=== PATIENT | female | born 1985 | race Caucasian/White ===

== ENCOUNTER 2020-01-14 09:23 | Outpatient (RCR) | payer OTHER, SELFPAY ==
[2020-01-14 10:48] VITALS: BP 108/72; PULSE 80
== END 2020-03-28 07:48 | disposition home or self-care (01) ==
LOC: ANHOBOP 09:23
PROVIDERS: Visit Provider Obstetrics & Gynecology
DX: O36.8130 Decreased fetal movements, third trimester, not applicable or unspecified (principal); Z3A.28 28 weeks gestation of pregnancy
CPT/HCPCS: 59025

== ENCOUNTER 2020-03-28 00:01 | Inpatient (IN) | payer OTHER, SELFPAY ==
[2020-03-28] VITALS (163 sets, daily range): BP systolic 69–123; BP diastolic 39–84; PULSE 36–109; RESP 18; TEMP 36.1–37.2; O2SAT 95–100; BMI 32.4
[2020-03-28 01:11] LABS: Basophils Percent Auto 0.4 % (0.2-1.2); Eosinophils Absolute Auto 0.1 K/mm3 (0-0.3); Hematocrit 30.4 % (37.0-47.0); Hemoglobin 10.5 g/dL (12.0-15.0); Immature Granulocyte Absolute 0.07 K/mm3 (0.00-0.031); Immature Granulocyte Percent A 0.7 % (0-0.5); Lymphocytes Absolute Auto 1.85 K/mm3 (0.9-3.2); Lymphocytes Percent Auto 18.3 % (18.3-44.2); Mean Corpuscular HGB Conc 34.5 g/dl (32-36); Mean Corpuscular Hemoglobin 31.6 pg (26-34); Mean Corpuscular Volume 91.6 fl (80-100); Mean Platelet Volume 10.7 fl (7.4-10.4); Monocytes Absolute Auto 0.8 K/mm3 (0.1-0.6); Monocytes Percent Auto 7.9 % (2.6-8.5); Neutrophils Absolute Auto 7.2 K/mm3 (1.3-6.7); Neutrophils Percent Auto 71.7 % (45.5-73.1); Platelet Count Result 238 k/mm3 (150-375); Red Blood Count 3.32 M/mm3 (4.2-5.4); Red Cell Distribution Width 12.1 % (11.5-14.5); White Blood Count 10.1 K/mm3 (4.5-10.0)
[2020-03-28] MEDS: LACTATED RINGERS 1,000 ML 125 ML IV CONT ×3 (01:15→07:51)
[2020-03-28] MEDS: OXYTOCIN 30 UNITS/NS 500 ML 30 UNITS/500 ML BAG IV CONT (01:15)
--- NOTE | 2020-03-28 01:24 | LDADM ---
This patient, Svetlana Mooney, was admitted to Labor/Delivery/Recovery 106 on 03/28/20 at 00:01. Plans for labor, pain management and were discussed with patient. Patient/family oriented to hospital policies and general routines including ID bracelet, bed and alarms, visiting hours, pain management, procedures, bathroom and other care routines, personal items, smoking policy, room service/diet and guest tray routines, security routines, and visiting hours. Patient/Family are encouraged to report perceived risks to care and to ask questions if they do not understand what they are told or what they should do. See OBIX for further documentation.
--- NOTE | 2020-03-28 04:01 | P.PNAN_ITS ---
Anes - Eval Pre Procedure Procedure: Labor epidural Date/Time: 03/28/20 04:01 Surgeon: Mitchell Blackburn M.D. Preop Diagnosis: pain during labor Pre Op Diagnosis: Induction Patient Data Age: 34 Gender: F Height: 1.7 m Weight: 94 kg Last Vital Signs Temp 36.4 C 03/28/20 01:46 Pulse 57 L 03/28/20 04:00 BP 114/76 03/28/20 04:00 Allergies Allergy/AdvReac Type Severity Reaction Status Date / Time No Known Allergies Allergy Unknown Unverified 09/13/11 13:50 Home Medications Medication Instructions Recorded Confirmed Type [id number]-kezjiaz fumarate-FA 1 tablet PO DAILY 03/08/20 03/08/20 History [] Laboratory Tests 03/28/20 03/28/20 03/28/20 01:01 01:01 01:01 WBC 10.1 K/mm3 H K/mm3 (4.5-10.0) RBC 3.32 M/mm3 L M/mm3 (4.2-5.4) Hgb 10.5 g/dL L g/dL (12.0-15.0) Hct 30.4 % L % (37.0-47.0) MCV 91.6 fl fl (80-100) MCH 31.6 pg pg (26-34) MCHC 34.5 g/dl g/dl (32-36) RDW 12.1 % % (11.5-14.5) Plt Count 238 k/mm3 k/mm3 (150-375) MPV 10.7 fl H fl (7.4-10.4) Immature Gran % (Auto) 0.7 % H % (0-0.5) Neut % (Auto) 71.7 % % (45.5-73.1) Lymph % (Auto) 18.3 % % (18.3-44.2) [place] % (Auto) 7.9 % % (2.6-8.5) Eos % (Auto) 1.0 % % (0-4.4) Baso % (Auto) 0.4 % % (0.2-1.2) Lymph # (Auto) 1.85 K/mm3 K/mm3 (0.9-3.2) [place] # (Auto) 0.8 K/mm3 H K/mm3 (0.1-0.6) Eos # (Auto) 0.1 K/mm3 K/mm3 (0-0.3) Baso # (Auto) 0.0 K/mm3 K/mm3 (0.0-0.1) Abs Immat Gran (auto) 0.07 K/mm3 H K/mm3 (0.00-0.031) Absolute Neuts (auto) 7.2 K/mm3 H K/mm3 (1.3-6.7) Absolute Nucleated RBC 0.0 K/mm3 K/mm3 (0.0-0.012) Nucleated RBC % 0.0 % % (0.0-0.2) RPR Pending Blood Type O Positive Antibody Screen Negative Patient hx anesthesia problems: none Family hx anesthesia problems: none [facility] Family History Family History (Updated 03/08/20 @ 13:18 by Sera Fernando RN) Father Diabetes mellitus Social History Social History Smoking status: Former smoker Tobacco type: cigarettes Smoking end date: 07/31/19 Substance use: current Gender identity (if verbalized by the patient): Female Spiritual care concerns: No Exam Day of Procedure 03/28/20 04:01
--- NOTE | 2020-03-28 07:20 | WPDOBADMIT ---
Obstetrics - Admit Note Admission Note: record reviewed. No pertinent additions to the history and/or any subsequent changes in the physical findings that are not consistent with the expected course of the were found. Additions to the history and/or subsequent changes in the physical findings follow. None.
--- NOTE | 2020-03-28 07:21 | WPDHPUPDATE1 ---
History and Physical Update Update Date/Time: 03/28/20 07:21 History and Physical has been reviewed, including an updated exam of the patient. There are NO changes in the patient's condition. Risks, benefits, and alternatives have been discussed and questions answered. Patient agrees to proceed with procedure.
[2020-03-28 11:55] LABS: Rapid Plasma Reagin Non-Reactive (NonReactive)
--- NOTE | 2020-03-28 13:37 | PM.OBPRVD ---
OB - Delivery Note Procedure Route of delivery: Laceration Description: Perineal - 2nd Degree Specimen: No Estimated blood loss (mL): 200 Anesthesia type: Epidural Disposition: floor Narrative: Patient prepped draped usual manner for this procedure. Maternal expulsive efforts readily delivered vertex which was then deliver the rest of the baby as well. Nuchal cord was noted and delivered through. Cord was clamped and cut placenta delivered spontaneously uterus was well contracted. Second-degree laceration was noted and approximated in 2 0 chromic to approximate the vaginal tissue. Deep tissue was also approximated in a subcuticular layer to approximate the skin. At this point seizure was considered terminated with good condition of mother and baby. Baby Weeks of gestation at delivery: 39 Infant gender: Male Weight (pounds): 8 Weight (ounces): 1 score one minute: 8 score five minutes: 9
[2020-03-28] MEDS: OXYTOCIN 30 UNITS/NS 500 ML 30 UNITS/500 ML BAG 125 UNITS IV CONT (13:49)
--- NOTE | 2020-03-28 16:22 | PC.NURSE ---
Patient transferred to post room #284 via wheelchair. Support person present. Oriented to unit, room, information board, rooming in, admission packet and security measures. Patient verbalizes understanding.
[2020-03-28] MEDS: BENZOCAINE 20% AER SPR (*SP) 56 GM CAN 1 SPRAY TOPICAL (16:58)
[2020-03-28] MEDS: WITCH HAZEL 40 PADS 1 PAD TOPICAL (16:58)
[2020-03-28] MEDS: IBUPROFEN 600 MG TABLET PO (16:59)
[2020-03-28] MEDS: DOCUSATE SODIUM 100 MG CAPSULE PO (16:59)
[2020-03-28] MEDS: LANOLIN (LANSINOH) 7.5 GM CREAM 1 APPLIC TOPICAL (17:00)
[2020-03-28] MEDS: ACETAMINOPHEN 325 MG TABLET 650 MG PO (22:14)
--- NOTE | 2020-03-29 00:20 | OBPPTRN ---
Patient transferred to post room #292 via wheelchair. Support person present. remains in level 2 nursery at this time. Oriented to unit, room, information board, rooming in, admission packet and security measures. Patient verbalizes understanding.
[2020-03-29 05:35] LABS: Hematocrit 31.3 % (37.0-47.0); Hemoglobin 10.5 g/dL (12.0-15.0)
[2020-03-29] MEDS: IBUPROFEN 600 MG TABLET PO ×2 (05:40→11:54)
[2020-03-29] MEDS: ACETAMINOPHEN 325 MG TABLET 650 MG PO ×2 (05:41→11:55)
--- NOTE | 2020-03-29 07:16 | WPDANLDPN2 ---
Anes-Prog Note L&D Date/Time: 03/29/20 07:16 Comfortable throughout: labor and delivery Neuraxial method: epidural Epidural/Spinal procedure site: clean & non-tender Neuro status: Neuro function grossly intact. Cardiovascular status: normal Respiratory status: normal Airway patency: baseline Mental status: baseline Post-Op hydration status: normal Vital Signs: Last Vital Signs Temp 36.6 C 03/28/20 20:00 Pulse 60 03/28/20 20:00 Resp 18 03/28/20 20:00 BP 111/63 03/28/20 20:00 Pulse Ox 97 03/28/20 20:00 Pain score (VAS): 06/12 I/O: Intake & Output 03/28/20 03/28/20 03/29/20 15:59 23:59 07:59 Intake Total 1500 1000 Output Total 2300 Balance -800 1000 Post-procedural complaints: none Patient feedback: Patient satisfied with anesthetic care.
--- NOTE | 2020-03-29 07:30 | PM.OBDSVD ---
DS: Admitting Diagnosis Admitting Diagnosis Admitting Diagnosis: Induction OB - DS: Summary OB Procedures : None OB Procedures Intrapartum: Spontaneous Vag Delivery OB Procedures: : None Time Spent with Patient Time attestation: Total time spent providing and/or coordinating discharge services: DS: Data Data Completed and Pending Labs on day of discharge: Labs from last 24 hours 03/29/20 03/28/20 04:12 01:01 Hgb 10.5 L Hct 31.3 L RPR Non-reactive Discharge Plan Discharge Discharging Clinician: Mitchell Blackburn Patient Disposition: Home, Self-Care Activity: as tolerated Diet: as tolerated Patient Instructions: Antibiotic Form Stand Alone Forms: General Discharge Information Follow-up/Referrals: Mitchell Blackburn MD [Physician] - 3 Weeks Discharge Medications: New ibuprofen 600 mg Tablet 600 mg PO Q6H PRN (Reason: Cramping) Qty: 30 RF: 0 Continued 28-800 mg-mcg Tablet 1 tablet PO DAILY RF: 0 Date of admission: 03/28/20 00:01 Primary Care Provider: PHYSICIAN,SUSTAINABLE AGRICULTURE SPECIALIST Admitting Provider: Mitchell Blackburn Attending physician on admission: Mitchell Blackburn Condition: Stable
[2020-03-29 07:33] VITALS: BP 113/79; PULSE 60; PULSE 61; RESP 18; TEMP 36.6; O2SAT 97; O2SAT 99
[2020-03-29] MEDS: DOCUSATE SODIUM 100 MG CAPSULE PO (07:59)
--- NOTE | 2020-03-29 09:30 | PC.NURSE ---
Patient viewed the discharge video Mother & Baby Care, The First Two Weeks . Patient was given the opportunity and encouraged to ask questions. Patient verbalized understanding of information shared and has been given the mother/baby guide for home reference.
--- NOTE | 2020-03-29 12:52 | PC.NURSE ---
Self care and infant care discharge instructions given to parents including follow up visit date and time. Pt. verbalized understanding. No questions or concerns verbalized.
[2020-03-30 10:46] VITALS: BP 122/88; PULSE 64; RESP 20; TEMP 36.4; O2SAT 100
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
== END 2020-03-29 14:35 | disposition home or self-care (01) | DRG 807 ==
LOC: ANHLDR 00:11 → ANHOB2 16:29
PROVIDERS: Admitting Provider Obstetrics & Gynecology; Visit Provider Obstetrics & Gynecology
DX: O69.81X0 Labor and delivery complicated by cord around neck, without compression, not applicable or unspecified (principal); Z37.0 Single live birth; O70.1 Second degree perineal laceration during delivery; Z3A.39 39 weeks gestation of pregnancy
CPT/HCPCS: 36415; 85014; 85018; 85025; 86592; 86850; 86900; 86901; A9270; J2590; J2795; J7120

== ENCOUNTER 2022-06-23 16:35 | Emergency (ER) | payer OTHER, SELFPAY ==
[2022-06-23 16:44] VITALS: BP 115/65; PULSE 65; RESP 20; TEMP 37.2; O2SAT 100
--- NOTE | 2022-06-23 16:51 | ED.URI ---
HPI - URI/Sore Throat General Chief Complaint: Upper Respiratory Infection Stated Complaint: Sore Throat/Fever Time Seen by Provider: 06/23/22 17:00 Source: patient and RN notes reviewed Mode of arrival: ambulatory Limitations: no limitations History of Present Illness HPI Narrative: 36-year-old female presents with concern for sore throat, fever that started today. She denies known sick contacts. She denies cough, runny nose, stuffy nose. MD elicited complaint: fever and sore throat Related Data Home Medications Medication Instructions Recorded Confirmed vit no.133-ferrous 1 tablet PO DAILY 03/08/20 06/23/22 fumarate 28 mg-folic acid 800 mcg tablet () magnesium 250 mg tablet 250 mg PO DAILY 03/07/22 06/23/22 Allergies Allergy/AdvReac Type Severity Reaction Status Date / Time No Known Allergies Allergy Unknown Verified 06/23/22 16:58 Review of Systems Review of Systems: CONSTITUTIONAL: Reports malaise, fever. EYES: Denies visual changes, redness, or discharge. ENT: Denies rhinorrhea, congestion, sinus pain, otalgia. Reports sore throat. CARDIOVASCULAR: Denies chest pain, palpitations, or edema. RESPIRATORY: Denies cough. Denies dyspnea. GASTROINTESTINAL: Denies abdominal pain, nausea, vomiting, diarrhea SKIN: Denies rash or itching. MUSCULOSKELETAL: Denies myalgia. NEUROLOGIC: Denies headache. All systems reviewed & are unremarkable except as noted in HPI and below PMFSH Past Medical History Medical History Migraines Suppression of menstruation Surgical History Surgical History History of colposcopy (10/29/17) HGSIL danilo 2-3 Family History Family History Father Diabetes mellitus Grandparent Brain cancer maternal grandmother Cervical cancer maternal grandmother Mother Carcinoma of colon Social History Social History Smoking status: Former smoker Tobacco type: cigarettes Smoking end date: 07/31/19 Alcohol intake: never Substance use: never Living arrangements: other Additional living arrangements comments: Occupation/Education: occupation 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 There is no relevant family history pertinent to the presenting complaint Exam Narrative: GENERAL: Nontoxic-appearing and in no acute distress. HEAD: Normocephalic EYES: PERRLA, conjunctivae clear ENT: Nares clear. Mucous membranes moist. TM pearly phillip with sharp light reflex bilaterally; no tragal tenderness. Oropharynx not erythematous without lesions. Tonsils not enlarged and without exudate, no drooling, no hoarseness, no trismus, uvula midline. NECK: Supple. No lymphadenopathy CHEST: Clear to auscultation, breath sounds equal. No wheezing, rhonchi, rales, or stridor. No respiratory distress, speaks in full sentences. HEART: Regular rate and rhythm. No murmur heard. SKIN: Warm, dry, no rash. NEURO: Alert and oriented x3. PSYCH: Normal mood and affect Course Course Emergency Course: Patient is aware of diagnosis, understands and agrees to treatment plan. Anticipatory guidance given. Patient agrees to follow-up as directed and is aware of reasons to seek care at the emergency department. Portions of this record may have been created with voice recognition software Level of Care: Express Care Visit Vital Signs Vital signs: Vital Signs Temperature 99 F 06/23/22 16:44 Pulse Rate 65 06/23/22 16:44 Respiratory Rate 20 06/23/22 16:44 Blood Pressure 1
== END 2022-06-23 17:27 | disposition home or self-care (01) ==
PROVIDERS: Emergency Provider Nurse Practitioner
DX: J06.9 Acute upper respiratory infection, unspecified (principal); Z20.822 Contact with and (suspected) exposure to COVID-19; Z87.891 Personal history of nicotine dependence
CPT/HCPCS: 87081; 87426; 87804; 87880; 99213; C9803; G0463

== ENCOUNTER 2022-09-28 16:59 | Outpatient (CLI) | payer OTHER, SELFPAY ==
[2022-09-28 17:23] VITALS: BP 118/72; PULSE 71
[2022-09-28 17:31] VITALS: BP 116/73; PULSE 74
[2022-09-28 17:45] VITALS: BP 119/80; PULSE 76
[2022-09-28 18:22] VITALS: BP 119/80; PULSE 76
[2022-09-28 18:24] VITALS: BP 119/80; PULSE 88
== END 2022-09-28 18:00 | disposition home or self-care (01) ==
LOC: ANHOBOP 17:05 → ANHOBPP 17:07
PROVIDERS: Visit Provider Obstetrics & Gynecology
DX: O13.9 Gestational [pregnancy-induced] hypertension without significant proteinuria, unspecified trimester (principal); Z3A.00 Weeks of gestation of pregnancy not specified
CPT/HCPCS: 59025; 99199

== ENCOUNTER 2022-10-08 16:52 | Inpatient (IN) | payer OTHER, SELFPAY ==
[2022-10-08] VITALS (44 sets, daily range): BP systolic 108–134; BP diastolic 67–82; PULSE 77–116; TEMP 36.5–37.2; O2SAT 95–100; BMI 36.2
--- NOTE | 2022-10-08 17:14 | LDADM ---
This patient, Svetlana Mooney, was admitted to Labor/Delivery/Recovery 104 on 10/08/22 at 16:52. Plans for labor, pain management and were discussed with patient. Patient/family oriented to hospital policies and general routines including ID bracelet, bed and alarms, visiting hours, pain management, procedures, bathroom and other care routines, personal items, smoking policy, room service/diet and guest tray routines, security routines, and visiting hours. Patient/Family are encouraged to report perceived risks to care and to ask questions if they do not understand what they are told or what they should do. See OBIX for further documentation.
[2022-10-08 17:25] LABS: Basophils Percent Auto 0.2 % (0.2-1.2); Eosinophils Absolute Auto 0.1 K/mm3 (0-0.3); Eosinophils Percent Auto 1.2 % (0-4.4); Hematocrit 32.7 % (37.0-47.0); Hemoglobin 11.1 g/dL (12.0-15.0); Immature Granulocyte Absolute 0.06 K/mm3 (0.00-0.031); Immature Granulocyte Percent A 0.5 % (0-0.5); Lymphocytes Absolute Auto 1.49 K/mm3 (0.9-3.2); Lymphocytes Percent Auto 12.5 % (18.3-44.2); Mean Corpuscular HGB Conc 33.9 g/dl (32-36); Mean Corpuscular Hemoglobin 30.4 pg (26-34); Mean Corpuscular Volume 89.6 fl (80-100); Mean Platelet Volume 10.7 fl (7.4-10.4); Monocytes Absolute Auto 0.6 K/mm3 (0.1-0.6); Monocytes Percent Auto 5.2 % (2.6-8.5); Neutrophils Absolute Auto 9.6 K/mm3 (1.3-6.7); Neutrophils Percent Auto 80.4 % (45.5-73.1); Platelet Count Result 263 k/mm3 (150-375); Red Blood Count 3.65 M/mm3 (4.2-5.4); Red Cell Distribution Width 13.3 % (11.5-14.5); White Blood Count 11.9 K/mm3 (4.5-10.0)
[2022-10-08] MEDS: DINOPROSTONE 10 MG VAG INSERT VAGINAL (17:55)
[2022-10-08] MEDS: LACTATED RINGERS 1,000 ML 125 ML IV CONT (20:22)
--- NOTE | 2022-10-08 21:22 | P.PNAN_ITS ---
Anes - Eval Final PreProcedure Day of Procedure 10/08/22 21:22 Patient weight: obese Heart: regular rate and rhythm Lungs: normal air movement Airway: Mallampati scale Neurological: alert and oriented ASA classification: II Anesthesia type and monitoring: regional Other findings: labor epidural Results Review: All pre-operative results and documents have been reviewed as part of the pre- operative evaluation. Informed Consent: The patient's anesthetic plan and its attendant risks and benefits were discussed with the patient/family/POA. Questions were solicited and answers provided to the satisfaction of the patient/family/POA.
[2022-10-09] VITALS (69 sets, daily range): BP systolic 85–151; BP diastolic 48–111; PULSE 52–105; RESP 16–18; TEMP 36.6–37.3; O2SAT 94–100
[2022-10-09] MEDS: LACTATED RINGERS 1,000 ML 125 ML IV CONT ×2 (01:44→03:20)
--- NOTE | 2022-10-09 04:55 | PM.OBPRVD ---
OB - Delivery Note Procedure Induction method: Per Cervidil Protocol Delivery augmentation: Rupture of Membranes Delivery monitor: External FHT and External Uterine Route of delivery: Episiotomy description: None Laceration Description: Vaginal and Superficial Specimen: No Quantitative Blood Loss (ml): 300 Disposition: Floor Complications: none Narrative: Patient prepped in usual manner for this procedure. Maternal expulsive efforts readily delivered vertex. Slight right shoulder dystocia was noted readily resolved with Cory Linares maneuver. Rest of baby delivered cord was clamped cut and placenta delivered spontaneously. Cervix vagina and vulva were inspected with minimal superficial lacerations which were not bleeding. At this point there was minimal uterine bleeding and the uterus was well contracted. Immediate postoperative condition of mother and baby were both excellent. Baby Weeks of gestation at delivery: 39 Infant gender: Female Weight (pounds): 8 Weight (ounces): 11 presentation: vertex position: Right Occiput Anterior Placenta delivery description: Spontaneous Cord Vessel Description: 3 Vessels score one minute: 8 score five minutes: 9 AMG Delivery Billing Delivery Delivery: Delivery Charge
--- NOTE | 2022-10-09 04:58 | WPDHPUPDATE1 ---
History and Physical Update Update Date/Time: 10/09/22 04:58 History and Physical has been reviewed, including an updated exam of the patient. There are NO changes in the patient's condition. Risks, benefits, and alternatives have been discussed and questions answered. Patient agrees to proceed with procedure.
[2022-10-09] MEDS: OXYTOCIN 30 UNITS/NS 500 ML 30 UNITS/500 ML BAG IV CONT (05:18)
--- NOTE | 2022-10-09 07:36 | OBPPTRN ---
Patient transferred to post room # 286 via wheelchair. Support person present. Oriented to unit, room, information board, rooming in, admission packet and security measures. Patient verbalizes understanding.
[2022-10-09 11:01] LABS: Rapid Plasma Reagin Non-Reactive (NonReactive)
[2022-10-10 06:45] LABS: Hematocrit 28.9 % (37.0-47.0); Hemoglobin 9.6 g/dL (12.0-15.0)
--- NOTE | 2022-10-10 07:27 | P.DS_ITS ---
DS: Admitting Diagnosis Discharge Date 10/10/2022 Admitting Diagnosis DS: Discharge Diagnosis Discharge Diagnosis (1) , delivered: Code(s): O80 - Encounter for full-term uncomplicated delivery Status: Acute OB - DS: Summary OB Procedures : None OB Procedures Intrapartum: Spontaneous Vag Delivery OB Procedures: : None Time Spent with Patient Time attestation: Total time spent providing and/or coordinating discharge services: DS: Data Data Completed and Pending Labs on day of discharge: Labs from last 24 hours 10/10/22 10/08/22 05:30 17:05 Hgb 9.6 L Hct 28.9 L RPR Non-reactive Discharge Plan Discharge Discharging Clinician: Mitchell Blackburn Patient Disposition: Home, Self-Care Activity: as tolerated Diet: as tolerated Patient Instructions: Antibiotic Form Stand Alone Forms: General Discharge Information Follow-up/Referrals: Mitchell Blackburn MD [Physician] - 3 Weeks Discharge Medications: New ibuprofen 600 mg Tablet 600 mg PO Q6H PRN (Reason: Cramping) Qty: 20 0RF Continued 28-800 mg-mcg Tablet 1 tablet PO DAILY Date of admission: 10/08/22 16:52 Primary Care Provider: PHYSICIAN,PUMP ROOM OPERATOR Admitting Provider: Mitchell Blackburn Attending physician on admission: Mitchell Blackburn Condition: Stable
--- NOTE | 2022-10-10 07:47 | WPDANLDPN2 ---
Anes-Prog Note L&D Date/Time: 10/10/22 07:47 Comfortable throughout: labor and delivery Neuraxial method: epidural Epidural/Spinal procedure site: clean & non-tender Neuro status: Neuro function grossly intact. Cardiovascular status: normal Respiratory status: normal Airway patency: baseline Mental status: baseline Post-Op hydration status: normal Vital Signs: Last Vital Signs Temp 36.6 C 10/09/22 16:45 Pulse 77 10/09/22 16:45 Resp 18 10/09/22 16:45 BP 114/66 10/09/22 16:45 Pulse Ox 98 10/09/22 12:12 O2 Del Method Room Air 10/08/22 17:13 Pain score (VAS): 06/12 I/O: Intake & Output 10/09/22 10/09/22 10/10/22 15:59 23:59 07:59 Intake Total 300 Balance 300 Post-procedural complaints: none Patient feedback: Patient satisfied with anesthetic care.
[2022-10-10 08:00] VITALS: BP 110/81; PULSE 65; RESP 16; TEMP 36.2; O2SAT 100
[2022-10-10] MEDS: IBUPROFEN 600 MG TABLET PO (09:02)
[2022-10-10] MEDS: POLYSACCHARIDE IRON COMPLEX 150 MG CAPSULE PO (09:03)
[2022-10-10] MEDS: MEASLES,MUMPS,RUBELLA VACCINE 0.5 ML VIAL SUB-Q (13:16)
--- NOTE | 2022-10-10 15:11 | PC.NURSE ---
Paper documentation exists on this patient due to [employer] System downtime on 10/09/22 from 1900 to 0700 .
[2022-10-11 09:23] VITALS: BP 116/66; PULSE 72; RESP 20; TEMP 37.4; O2SAT 100
== END 2022-10-10 13:30 | disposition home or self-care (01) | DRG 807 ==
LOC: ANHLDR 16:57 → ANHOB2 10-09 07:43
PROVIDERS: Admitting Provider Obstetrics & Gynecology; Visit Provider Obstetrics & Gynecology
DX: O66.0 Obstructed labor due to shoulder dystocia (principal); Z37.0 Single live birth; Z3A.39 39 weeks gestation of pregnancy
CPT/HCPCS: 36415; 85014; 85018; 85025; 86592; 86850; 86900; 86901; 90710; A9270; J2590; J2795; J7120

== ENCOUNTER 2023-04-29 09:38 | Outpatient (CLI) | payer OTHER, SELFPAY ==
[2023-04-29 10:47] LABS: Hemoglobin 12.5 g/dL (12.0-15.0); Mean Corpuscular HGB Conc 32.1 g/dl (32-36); Mean Corpuscular Hemoglobin 29.8 pg (26-34); Mean Corpuscular Volume 92.9 fl (80-100); Mean Platelet Volume 10.8 fl (7.4-10.4); Platelet Count Result 242 k/mm3 (150-375); Red Cell Distribution Width 12.4 % (11.5-14.5); White Blood Count 6.8 K/mm3 (4.5-10.0)
== END 2023-04-29 09:39 | disposition home or self-care (01) ==
LOC: ANHLAB 09:41
PROVIDERS: PCP Internal Medicine; Visit Provider Obstetrics & Gynecology
DX: Z30.2 Encounter for sterilization (principal)
CPT/HCPCS: 36415; 85027

== ENCOUNTER 2023-05-02 01:51 | Day surgery (SDC) | payer OTHER, SELFPAY ==
--- NOTE | 2023-04-22 16:39 | PC.NURSE ---
Report to the Outpatient Waiting Room, entrance under the green pavilion located off [facility], at time 0745 on date 05/02/23. Planned Procedure Time: 0945. Time changes happen often and if your time is changed the preop area will call you the afternoon before. - You and your visitor will be asked to self-screen and do not enter if you have any COVID symptoms. - A mask is optional within the hospital at this time. Patients may have clear liquids (water, carbonated beverages, clear teas, apple juice) until 3 hours prior to surgery with a maximum of 20 ounces. 0645 - No food from midnight until time of surgery - Infants may have breast milk until 4 hours before surgery, formula 6 hours prior to surgery. - Children will be allowed to drink immediately following surgery. If applicable, please bring a bottle or sippy cup to assist with drinking. Juice, water, soda, and popsicles are readily available. For infants on formula, please bring formula the day of surgery. Pacifiers are allowed. Take the following medications with a SIP of water the morning of surgery: n/a DO NOT STOP ANY OF YOUR OTHER PRESCRIPTION MEDICATIONS PRIOR TO SURGERY ?EXCEPT THE FOLLOWING Medications to discontinue per physician n/a Date to take last dose n/a Please no make-up, nail mauritanian, hairspray, perfume, deodorant, or body powder the day of surgery. No jewelry (including any body piercings) or valuables the day of surgery, leave them at home. Please take a shower or bath the night before, or the morning of, surgery with an antibacterial soap. Wear comfortable, loose fitting clothing. Children are encouraged to wear pajamas. - Jewelry must be removed prior to entering the operating room. Rings and piercings that are not removed may be cut off. - The hospital will not accept responsibility for valuables. - Please leave all valuables, including medications, at home the day of surgery. If you are going home after surgery, a licensed explosives truck driver must drive you home. - NO public transportation without another adult if you receive anesthesia. - We recommend that an adult stay with you for 24 hours following discharge. - We also recommend that you do not drive, make important decision, drink alcoholic beverages, or take any drugs that were not prescribed by your health care provider for at least 24 hours after your discharge time. For Pediatric surgeries, we recommend two adults accompany the child home. Follow any additional instructions given to you from your surgeon. If you or anyone in your household have experienced Covid symptoms in the past week, please notify your surgeon or the nurse liaison at the phone number below for possible testing. Telephone instructions given to Patient- Svetlana Mooney and asked if any additional questions and then verbalized understanding. Patient advised to call surgeon office or pre surgery nurse liaison [phone] if any additional questions.
[2023-04-22 16:44] VITALS: BMI 29.7
[2023-05-02] VITALS (8 sets, daily range): BP systolic 94–138; BP diastolic 53–80; PULSE 60–105; RESP 14–20; TEMP 36.2–36.4; O2SAT 92–100
--- NOTE | 2023-05-02 07:26 | WPDHPUPDATE1 ---
History and Physical Update Update Date/Time: 05/02/23 07:26 After patient's last visit Pap smears found to be abnormal. Therefore we will be adding LEEP conization to her procedure today. Plan: 1. LEEP conization 2. Bilateral laparoscopic salpingectomy History and Physical has been reviewed, including an updated exam of the patient. There are NO changes in the patient's condition. Risks, benefits, and alternatives have been discussed and questions answered. Patient agrees to proceed with procedure.
[2023-05-02] MEDS: LACTATED RINGERS 1,000 ML 30 ML IV CONT (09:30)
--- NOTE | 2023-05-02 09:43 | P.PNAN_ITS ---
Anes - Initial Pre Proc Eval Procedure: Operation Date: 05/02/23 10:30 Proposed Procedures p Bilateral Laparoscopic Salpingectomy - Mitchell Blackburn MD s Loop Electrical Excision Procedure - Mitchell Blackburn MD Date/Time: 05/02/23 09:43 Surgeon: Mitchell Blackburn MD Pre Op Diagnosis: Desires Sterilization, cervical dysplasia Patient Data Age: 37 Gender: F Height: 1.7 m Weight: 86.3 kg Allergies Allergy/AdvReac Type Severity Reaction Status Date / Time No Known Allergies Allergy Unknown Verified 05/02/23 09:17 Home Medications Medication Instructions Recorded Confirmed Type No Home Medications 04/10/23 05/02/23 History Patient hx anesthesia problems: none Family hx anesthesia problems: none Results Review: All pre-operative results and documents have been reviewed as part of the pre- operative evaluation. [facility] Past Medical History Medical History Migraines Suppression of menstruation Surgical History Surgical History History of colposcopy (10/29/17) HGSIL danilo 2-3 Family History Family History Father Diabetes mellitus Grandparent Brain cancer maternal grandmother Cervical cancer maternal grandmother Mother Carcinoma of colon Social History Social History Smoking packs per day: 1 Smoking cigarettes per day: 20.0 Years smoked: 10 Smoking pack-years: 10.00 Smoking status: Former smoker Tobacco type: cigarettes Second hand tobacco smoke exposure: No Smoking end date: 07/31/19 Alcohol intake: never Drinks per week: 1 Substance use: never Substance use type: does not use Lack of Transportation: No Lack of Food: Never True Current Housing: I Have Housing Concerned About Future Housing: No Difficulty Paying Gas/Electric Bills: No Difficulty Paying for Meds: No Currently Unemployed: No Education: Associate Degree Difficulty w/ Childcare or Family Care: No Living arrangements: other Additional living arrangements comments: Occupation/Education: occupation 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 Gender identity (if verbalized by the patient): Female Sexual Orientation (if Verbalized by the Patient): Straight or Heterosexual Spiritual care concerns: No Anes - Eval Final PreProcedure Day of Procedure 05/02/23 09:43 Patient weight: overweight Heart: regular rate and rhythm Lungs: clear to auscultation Airway: Mallampati scale class II Neurological: alert and oriented Last oral intake: >/= 8 hours ASA classification: II Emergent: no Anesthetic plan: proceed Anesthesia type and monitoring: general ETT and standard monitoring Results Review: All pre-operative results and documents have been reviewed as part of the pre- operative evaluation. Informed Consent: The patient's anesthetic plan and its attendant risks and benefits were discussed with the patient/family/POA. Questions were solicited and answers provided to the satisfaction of the patient/family/POA.
[2023-05-02] MEDS: MIDAZOLAM HCL (*CRX) 2 MG/2 ML VIAL IV PUSH (09:51)
[2023-05-02] MEDS: SCOPOLAMINE 1.5 MG PATCH TRANSDERM (09:55)
[2023-05-02] MEDS: KETOROLAC 15 MG/ML VIAL (*BKC) IV PUSH (09:56)
[2023-05-02] MEDS: ACETAMINOPHEN 500 MG TABLET 1000 MG PO (09:57)
[2023-05-02] MEDS: IODINE/POTASSIUM IODIDE 8 ML SOLUTION TOPICAL (10:53)
--- NOTE | 2023-05-02 11:03 | W.PM.PROC2 ---
Procedure Note - Detailed Date of Procedure 05/02/23 Pre-op Diagnosis Desires Sterilization, cervical dysplasia Post-op Diagnosis Same Procedure Performed 1. Laparoscopic bilateral salpingectomy 2. LEEP conization Surgeon Mitchell Blackburn MD Anesthesia General Findings 1. Transformation zone well delineated 2. Uterus tubes ovary without abnormality other than small right paratubal cyst Description of Procedure Patient prepped and draped usual manner for this procedure. Cervical instruments were placed for uterine mobility throughout the case. Abdominal trocar sites were placed under direct visualization and using the Harmonic scalpel the mesial salpinx was cauterized and cut her bilaterally and tubes removed without difficulty. Small right tubal cyst was noted. Gas was allowed to escape, trocars removed, and incisions were approximated using 4-0 Monocryl. Lugol solution was used to identify transformation zone. Appropriately sized LEEP instrument was obtained and ectocervical and endocervical specimens removed without difficulty. Cauterization of the bed of the biopsy site with hemostasis noted. Patient was then sent to recovery room in stable condition. Estimated Blood Loss 20 Drains No Packing No Pathology Yes Complications No immediate complications Condition Stable Disposition PACU [facility] Billing Surgery - Charge Forward: Surgery Billing
[2023-05-02] MEDS: fentaNYL CITRATE INJ (*CRX) 100 MCG/2 ML VIAL 25 MCG IV PUSH ×2 (11:43→11:48)
[2023-05-02] MEDS: oxyCODONE HCL (*CRX) 5 MG TAB IR PO (12:26)
== END 2023-05-02 13:00 | disposition home or self-care (01) ==
PROVIDERS: PCP Internal Medicine; Visit Provider Obstetrics & Gynecology
PROC: (CPT 49320; principal; 2023-05-02 10:30)
PROC: 0UBC7ZZ Excision of Cervix, Via Natural or Artificial Opening (ICD-10-PCS; CPT 57522; 2023-05-02 10:30)
DX: D06.0 Carcinoma in situ of endocervix (principal); Z30.2 Encounter for sterilization; N83.8 Other noninflammatory disorders of ovary, fallopian tube and broad ligament; N72 Inflammatory disease of cervix uteri; N88.8 Other specified noninflammatory disorders of cervix uteri; Z87.891 Personal history of nicotine dependence
CPT/HCPCS: 57522; 58661; 88302; 88307; A9270; J1100; J1170; J1200; J1885; J2250; J2371; J2405; J2704; J3010; J7120

== ENCOUNTER 2024-06-19 09:01 | Outpatient (CLI) | payer OTHER, SELFPAY ==
[2024-06-19 09:22] LABS: Hematocrit 38.5 % (37.0-47.0); Hemoglobin 12.8 g/dL (12.0-15.0); Mean Corpuscular HGB Conc 33.2 g/dl (32-36); Mean Corpuscular Hemoglobin 30.6 pg (26-34); Mean Corpuscular Volume 92.1 fl (80-100); Mean Platelet Volume 9.7 fl (7.4-10.4); Platelet Count Result 300 k/mm3 (150-375); Red Blood Count 4.18 M/mm3 (4.2-5.4); Red Cell Distribution Width 12.8 % (11.5-14.5); White Blood Count 7.7 K/mm3 (4.5-10.0)
[2024-06-19 09:40] LABS: Albumin Level 4.4 g/dL (3.5-5.1); Anion Gap 10 mmol/L (4-12); Blood Urea Nitrogen 22 mg/dL (7-17); Calcium 9.2 mg/dL (8.4-10.2); Carbon Dioxide 24 mmol/L (22-30); Chloride 103 mmol/L (98-107); Estimated Glomerular Filt Rate > 60; Glucose 87 mg/dL (65-110); Potassium 4.2 mmol/L (3.4-5.0); Sodium 137 mmol/L (137-145)
[2024-06-19 09:47] LABS: Prealbumin 21.3 mg/dL (17.6-36.0)
[2024-06-19 11:34] LABS: Iron 94 ug/dL (37-170)
[2024-06-24 13:55] LABS: Vitamin B1 14 nmol/L (8-30)
== END 2024-06-19 09:02 | disposition home or self-care (01) ==
LOC: ANHLAB 09:05
PROVIDERS: Visit Provider Surgery Plastic and Reconstructive Surgery
DX: R63.4 Abnormal weight loss (principal)
CPT/HCPCS: 36415; 80048; 82040; 83540; 84134; 84425; 85027

== ENCOUNTER 2024-07-15 08:20 | Day surgery (SDC) | payer OTHER, SELFPAY ==
[2024-06-23 10:34] VITALS: BMI 25.7
[2024-07-15] VITALS (8 sets, daily range): BP systolic 91–109; BP diastolic 56–66; PULSE 64–109; RESP 12–18; TEMP 36.6–36.8; O2SAT 94–100
[2024-07-15] MEDS: LACTATED RINGERS IRRIG 1,000 ML, LIDOCAINE 1% LOCAL INJ 50 ML, EPINEPHrine HCL INJ 1 MG... INFILTRATE (07:30)
[2024-07-15] MEDS: LACTATED RINGERS 1,000 ML 30 ML IV CONT ×3 (09:45→14:31)
--- OUTSIDE RECORDS SUMMARY | 2024-07-15 09:51 | XMS_ITS | Patient Health Summary ---
Author Organization [facility] Address [address] [place] [address] Care Team Providers Care Security Shift Manager Name Role Phone Unavailable Primary Care Provider Unavailabl e Note from [facility],non-owned Affiliates and Associated Physician Practices is amultiple site organization consisting of ambulatory clinics and hospital sitesin [place], [place], [place] and [place]. This disclosure is being madepursuant to the Care Everywhere program and may not contain all information available regarding this patient. Last updated 18.[facility] [employer] Allergies No known active allergies Immunizations * INFLUENZA VACCINE, QUADR. (FLUZONE; FLULAVAL; FLUARIX; AFLURIA QUADRIVALENT; 6MO+), 0.5 ML (IIV4)(Given 03/05/2020) * TDAP (7yrs+)(Given 03/05/2020) Social History Tobacco Use Types Packs/Day Years Used Date Smoking Tobacco: Never Assessed Sex and Gender Information Value Date Recorded Sex Assigned at Not on file Gender Identity Not on file Sexual Orientation Not on file Procedures * SONOGRAM - COMPLETE(Performed 05/29/2022) Performed for Encounter for anatomic survey (HCC), Advanced maternal age in multigravida, second trimester (HCC) * SONOGRAM - COMPLETE(Performed 04/30/2022) Performed for Encounter for anatomic survey (HCC), Advanced maternal age in multigravida, second trimester (HCC) Results * SONOGRAM - COMPLETE (05/29/2022 1:45 PM MANUFACTURING ENGINEERING TECHNOLOGIST) Only the most recent of2 resultswithin the time period is included. Anatomical Region Laterality Modality Other 05/29/2022 1:45 PM MANUFACTURING ENGINEERING TECHNOLOGIST Narrative 05/29/2022 4:21 PM MANUFACTURING ENGINEERING TECHNOLOGIST Rafa GUSMAN [facility] PHONE: FAX: Pat. Name: VIVIENNE MOONEY Pat. No: [id number] Study Date: 05/29/2022 1:45pm , Age: 06 1985, 36 Pregnancies: 3, Para 2 Height: 67 in Weight: 191 lb LMP: 01/08/2022 GA by LMP: 20w1d GA by Base: 20w1d MEL: 10/15/2022 GA by US: 20w6d MEL: 10/10/2022 GA Selected: 20w1d (LMP) MEL: 10/15/2022 Referring MD: Mitchell Blackburn MD Signal Tower Director: Abby James RDMS CPT4: 83123 BMI: 29.91 Hist/Ind: Anatomy Screen AMA: LR NIPT (F) MEASUREMENTS & AGE GROWTH EVALUATION Measurement GA Range Srce %for GA Ratios ----- ---- ------- BPD 4.8 cm 20w4d (78w4p-40e3x) Hadl BPD 71% FL/BPD 0.73 HC 17.5 cm 20w0d (76i6x-03h3a) Hadl HC 39% FL/AC 0.22 AC 16.4 cm 21w3d (12b3i-40k0z) Hadl AC 84% HC/AC 1.07 (1.06 - 1.24) FL 3.5 cm 21w1d (63y9w-94x1u) Hadl FL 78% CI 0.79 (0.70 - 0.86) HL 3.3 cm 21w2d (68z5m-05k3e) Sd HL 70% Cere 2.0 cm 19w2d (28q8k-49i2z) Agustin Cere28% GA for sonogram 20w6d (98l9f-57g9w) Weight Estimate: based on (BPD,HC,AC,FL) Avg Weight: 404 gm (345-463gm) Hadloc : 0lbs, 14oz Normal: 338 gm (253-423gm) Hadloc Wt% 94% for 20w1d Heart Rate: 150 bpm Amniotic Fluid Index: 05.2cm (Deepest Pocket) EVAL, PLACENTA Presentation: cephalic Placenta: posterior Heart Rate: 150 bpm Amniotic Fluid Volume: normal Anatomy!Normal!Abnormal!Suboptimal!Prev. Seen!Comments Cranium ! x ! ! ! ! Mdl (CSP/Thal! x ! ! ! ! Ventricles ! x ! ! ! ! Choroid Plexu! x ! ! ! ! Cerebellum ! x ! ! ! ! Cisterna M. ! x ! ! ! ! Nuchal Fold ! x ! ! ! ! Orbits ! x ! ! ! ! Profile ! x ! ! ! ! Nasal Bone ! x ! ! ! ! Lip ! x ! ! ! ! Spine ! x ! ! ! ! Lungs ! x ! ! ! ! 4 Chamber Hea! x ! ! ! ! LVOT ! x ! ! ! ! RVOT ! x ! ! ! ! 3 Vessel View! x ! ! ! ! 3 Vessel Trac! x ! ! ! ! Cross-over ! x ! ! ! ! Ductal Arch ! x ! ! ! ! Aortic Arch ! x ! ! ! ! Caval View ! x ! ! ! ! Situs ! x ! ! ! ! Diaphragm ! x ! ! ! ! Stomach ! x ! ! ! ! Bowel ! x ! ! ! ! Kidneys ! x ! ! ! ! Bladder ! x ! ! ! ! 3 Vessel Cord! x ! ! ! ! Cord In! x ! ! ! ! Upper Extremi! x ! ! ! ! Hands ! x ! ! ! ! Lower Extremi! x ! ! ! ! Feet ! x ! ! ! ! External Karen! x ! ! ! !Female Placental Cor! x ! ! ! ! CLINICAL SUMMARY A single fetus is seen in cephalic presentation. The measurements today are consistent with appropriate growth. The MEL is based on her LMP and a prior ultrasound examination. The amniotic fluid volume is within normal limits. IMPRESSION: Single, live, intrauterine at 20w1d Appropriate size for established MEL Amniotic fluid volume: within normal limits No major malformations were seen within the limitations of ultrasound RECOMMEND: Follow-up ultrasound as clinically indicated Thank you for allowing us the opportunity to care for your patient. Nura Horowitz MD <Electronic Signature> 05/29/2022 04:21pm Micheal Horowitz MD [facility] ORDERABLES
--- OUTSIDE RECORDS SUMMARY | 2024-07-15 09:51 | XMS_ITS | Encounter Summary ---
Author Organization [facility] Address [facility] [place] [address] Care Team Providers Care Cover Seamer Name Role Phone Beth Roberts NP Primary Care Provider Faye Worthington MD Primary Care Provider [phone] Encounter Details Date Type Department Care Team (Latest Contact Info) Description 09/28/2020 [facility] Message Enc [address] [place] [address] Beth Roberts NP Follow Up/Update Social History Tobacco Use Types Packs/Day Years Used Date Smoking Tobacco: Every Day Cigarettes Smokeless Tobacco: Never Alcohol Use Standard Drinks/Week Comments Yes 0 (1 standard drink = 0.6 oz pur e alcohol) once a week PHQ-2 Answer Date Recorded PHQ-2 Score - If the patient scores above 3, please move on to questions 3-9 0 09/27/2020 Comments No Sex and Gender Information Value Date Recorded Sex Assigned at Not on file Legal Sex Female 8:52 PM CDT Gender Identity Not on file Sexual Orientation Not on file COVID-19 Exposure Response Date Recorded In the last month, have you been in contact with someone who was confirmed or suspected to have Coronavirus / COVID-19? No / Unsure 09/27/2020 9:46 AM CDT documented as of this encounter Plan of Treatment Upcoming Encounters Date Type Department Care Team (Late st Contact Info) Description 08/18/2024 9:40 AM CDT Office Visit [address] [place] [address] Faye Ovalle MD [address] [address] documented as of this encounter Visit Diagnoses Not on filedocumented in this encounter Additional Health Concerns Infection Onset Date Last Indicated Resolved Time COVID-19 Rule Out 01/08/2022 01/08/2022 01/08/2022 10:41 AM CDT Assessment Noted Time PHQ-9 Depression Total Score: 4 09/28/19 10:25 AM CDT documented as of this encounter Care Teams Cover Seamer Relationship Specialty Start Date End Date Beth Roberts NP PCP - General NURSE PRACTITIONER 09/14/20 01/07/22 Faye Ovalle MD [address] [address] PCP - General INTERNAL MEDICINE 01/08/22 documented as of this encounter
--- OUTSIDE RECORDS SUMMARY | 2024-07-15 09:51 | XMS_ITS | Encounter Summary ---
Author Organization [facility] Address [facility] [place] [address] Care Team Providers Care Microbial Specialist Name Role Phone Faye Ovalle MD Primary Care Provider [phone] Encounter Details Date Type Department Care Team (Latest Contact Info) Description 12/17/2022 MyChart Message Enc [address] [address] [address] [place] [address] Faye Ovalle MD [address] [place] [address] [address] [place], [place] [id number] Due for your physical Social History Tobacco Use Types Packs/Day Years Used Date Smoking Tobacco: Former Cigarettes 1 - 03/17/2021 Smokeless Tobacco: Never Comments:counseled by Dr Citlali crane Alcohol Use Standard Drinks/Week Comments Yes 0 (1 standard drink = 0.6 oz pur e alcohol) once a week PHQ-2 Answer Date Recorded Patient Health Questionnaire-2 Score 0 12/19/2022 Comments No Sex and Gender Information Value Date Recorded Sex Assigned at Not on file Legal Sex Female 8:52 PM CDT Gender Identity Not on file Sexual Orientation Not on file documented as of this encounter Plan of Treatment Upcoming Encounters Date Type Department Care Team (Late st Contact Info) Description 08/18/2024 9:40 AM CDT [facility] [address] [place], [place] [id number] Faye Ovalle MD [address] [address] documented as of this encounter Visit Diagnoses Not on filedocumented in this encounter Additional Health Concerns Assessment Noted Time PHQ-9 Depression Total Score: 3 09/30/19 22 8:47 AM CDT documented as of this encounter Care Teams Microbial Specialist Relationship Specialty Start Date End Date Faye Ovalle MD [address] [address] PCP - General INTERNAL MEDICINE 01/08/22 documented as of this encounter
--- OUTSIDE RECORDS SUMMARY | 2024-07-15 09:51 | XMS_ITS | Clinical Summary ---
Author Organization [facility] Address [address] [place] [address] Care Team Providers Care Property Technician Name Role Phone Faye Ovalle MD Primary Care Provider [phone] Allergies No known active allergies Medications FLUoxetine (PROZAC) 20 MG capsuleIndicati ons:JOAN (generalized anxiety disorder),Mild episode of recurrent major depressive disorder (CMS/HCC) Take 1 capsule (20 mg total) by mouth daily. 05/15/2023 Active vitamin D2, ergocalciferol, (DRISDOL) 1.25 mg capsuleIndicati ons:Vitamin D deficiency Take 1 capsule (50,000 Units total) by mouth every 7 days. 12 capsule 3 01/01/2024 Active phentermine (ADIPEX-P) 37.5 MG tabletIndicatio ns:Overweight (BMI 25.0-29.9) Take 1 tablet (37.5 mg total) by mouth every morning before breakfast. 30 tablet 05/20/2024 Active topiramate (TOPAMAX) 50 MG TabIndications: Overweight (BMI 25.0-29.9) Take half a tablet daily for the first one month then change to full pill daily. 90 tablet 1 05/20/2024 Active Active Problems Problem Noted Date Diagnosed Date Acne 08/16/2016 Seizure disorder (CMS/HCC HHS/HCC) 08/16/2016 Wrist pain 08/16/2016 Resolved Problems Problem Noted Date Diagnosed Date Resolved Date Encounter for preventive health examination 07/31/2016 10/03/2020 Encounters Date Type Department Care Team Description 06/15/2024 9:23 AM CROP RANCH HAND - 06/15/2024 11:59 PM CROP RANCH HAND Hospital Encounter [facility] [address] [place] [address] Faye Ovalle MD Discharge Disposition: Home or Self Care (Routine Discharge) 06/15/2024 Travel 05/20/2024 1:20 PM CR[facility] RANCH HAND Office Visit [facility] - [address] [place] [address] Faye Ovalle MD Follow Up; Weight Problem; Breast Problem 05/20/2024 Travel from Last 3 Months Immunizations Name Administration Dates Next Due COVID-19 Vaccine (Generic) 08/06/2020 Influenza Adult (Generic) 05/06/2021,03/05/2020 MMR (MMRII) 10/10/2022 MODERNA COVID-19 (NUCLEAR ENGINEER JOSELITO CAROLINE), MRNA, LNP-S, PF, 50 MCG/ 0.25 ML DOSE 05/06/2021 Tdap (Adacel) 09/27/2020 Tdap (Generic) 03/05/2020 Family History Medical History Relation Comments Diabetes Father Cancer Mother colon Breast Cancer Neg Hx Relation Status Comments Father Mother Alive Social History Tobacco Use Types Packs/Day Years Used Date Smoking Tobacco: Former Cigarettes 1 - 03/17/2021 Smokeless Tobacco: Never Tobacco Cessation:Counseling Given: Yes Comments:counseled by Dr Ovalle Alcohol Use Standard Drinks/Week Comments Yes 0 (1 standard drink = 0.6 oz pur e alcohol) once a week PHQ-2 Answer Date Recorded Patient Health Questionnaire-2 Score 0 12/19/2022 Comments No Sex and Gender Information Value Date Recorded Sex Assigned at Not on file Legal Sex Female 8:52 PM CDT Gender Identity Not on file Sexual Orientation Not on file Last Filed Vital Signs Vital Sign Reading Time Taken Comments Blood Pressure 121/73 05/20/2024 1:31 PM CROP RANCH HAND Pulse 84 05/20/2024 1:31 PM CROP RANCH HAND Temperature 36.4 C (97.5 F) 05/20/2024 1:31 PM CROP RANCH HAND Respiratory Rate 18 05/20/2024 1:31 PM CROP RANCH HAND Oxygen Saturation 100% 05/20/2024 1:31 PM CROP [facility]ANCH HAND Inhaled Oxygen Concentration - - Weight 74.6 kg (164 lb 6.4 oz) 05/20/2024 1:31 P M CROP RANCH HAND Height 170.2 cm (5' 7 ) 05/20/2024 1:31 PM CROP RANCH HAND Body Mass Index 25.75 05/20/2024 1:31 PM CROP RANCH HAND Plan of Treatment Upcoming Encounters Date Type Department Care Team (Late st Contact Info) Description 08/18/2024 9:40 AM CDT Office Visit [facility] [place] [address] [place] [address] [address] [place] [address] Faye Ovalle MD [address] [facility] [address] [place], [place] [phone] Health Maintenance Due Date Last Done Comments Hepatitis B Vaccines (1 of 3 - 19+ 3-dose series) 2005 Cervical Cancer Screening Pap with HPV Testing (Age 30 to 64) Every 5 Years 2016 PHQ-2 (Physician [place]) 12/20/2023 12/19/2022 COVID-19 Vaccine ( season) 2024 05/06/2021, 08/08/2020, 08/06/2020 PHQ-2 (Physician [place]) 06/03/2024 12/19/2022 Cervical Cancer Screening Pap Smear (Age 30 to 64) Every 3 Years 11/08/2024 11/08/2021 Cervical Cancer Screening with HPV 11/08/2024 Annual Physical 12/31/2024 01/01/2024, 12/01, 09/29/2021, Additional history exists Influenza Adult (#1) 2025 05/06/2021, 03/05/20 20 Postponed from 03/03/2024 (Patient Refused) DTaP, Tdap and Td Vaccines (3 - Td or Tdap) 09/27/2030 09/27/2020, 03/05/2020 Hepatitis C Completed 12/19/2022 HPV Vaccines Aged Out No longer eligi ble based on patient's age to complete this topic Meningococcal B Vaccine Aged Out No l onger eligible based on patient's age to complete this topic Meningococcal Vaccine Aged Out No geoffrey nickie eligible based on patient's age to complete this topic Pneumococcal Vaccine: Pediatrics (0 to 5 Years) and At-Risk Patients (6 to 64 Years) Aged Out No longer eligible based on patient's age to complete this topic RSV Immunizations Under 20 Months Aged Out No longer eligible based on patient's age to complete this topic Procedures Procedure Name Priority Date/Time Associated Diagnosis Comments MG DIAG W IVANA BILAT DIGI Routine 06/15/2024 10:23 AM CR[facility] RANCH HAND Abnormal breast exam Abnormal mammogram HEPATITIS C ANTIBODY Routine 12/19/2022 7:46 AM CDT Annual physical exam Routine general medical examination at a health care facility CYTOPATH CERV/VAG THIN LAYER Routine 11/08/2021 7:30 AM CDT from Last 3 Months or Most Recently Relevant to Health Maintenance Results * MG DIAG W IVANA BILAT DIGI (06/15/2024 10:23 AM CROP RANCH HAND) Anatomical Region Laterality Modality Breast Bilateral Mammography, Rad iographic Imaging 06/15/2024 10:1 7 AM [facility]ANCH HAND Impressions 06/15/2024 10:18 AM CROP RANCH HAND ===== IMPRESSION: ===== 1. Stable mammographic appearance with no new findings to suggest malignancy in either breast. Assessment: ACR BI-RADS 2 - BENIGN FINDING(S) Recommendation: 1:Routine ScreeningBilateral Comments: Ordered By: FAYE OVALLE Interpreted By: Reuben Gaytan MD, 06/15/2024 10:17 AM Narrative 06/15/2024 10:18 AM CROP RANCH HAND [id number] [place] [address] Examination: Digital bilateral diagnostic mammogram with 3-D tomography Exam Date/Time: 06/15/2024 9:28 AM Reason For Exam: abnormal mammogram Abnormal breast exam.] 64.59. Comparison: May 19, 2021. Technique: Digital diagnostic mammography of both breasts was performed in addition to 3-D Tomosynthesis technique. This study was read with the assistance of a computer-aided detection system. Tissue density: There are scattered areas of fibroglandular density. Findings: No new focal asymmetry, dominant mass lesion, area of skin thickening, or cluster of suspicious appearing calcifications in either breast to suggest malignancy. us Faye Ovalle MD MAMMO Final Result * HEPATITIS C ANTIBODY (12/19/2022 7:46 AM CDT) HEPATITIS C AB NON-REACTI VE NON-REACT JAVIER 12/19/2022 9:42 PM CDT [facility] Comment: ANTIBODIES TO HCV NOT DETECTED. DOES NOT EXCLUDE THE POSSIBILITY OF EXPOSURE TO HCV. 12/19/2022 7:46 AM CDT us Faye Ovalle MD LABORATORY Final Result [facility] [address] [place] [address], [id number] * Cytopath Cerv/Vag Thin Layer (11/08/2021 7:30 AM CDT) THIN PREP PAP [facility] [address] [place] [address] Department of Pathology Pathology Report CERVICAL/VAGINAL PAP SMEAR REPORT Name: VIVIENNE MOONEY Age: 6 1985 (Age: 35) Location: [facility] Sex: F Collected Date: 11/08/2021 Hospital #: [id number] Date Received: 11/10/2021 Date Reported: 11/13/2021 Provider: BETH LEE INTERPRETATION CERVICAL/ENDOCERVI YUMIKO: SATISFACTORY FOR EVALUATION. ENDOCERVICAL/TRANS FORMATION ZONE COMPONENT ABSENT. NEGATIVE FOR INTRAEPITHELIAL LESION OR MALIGNANCY. Electronically Signed Out By СВЕТЛАНА Garcia (ASCP) CLINICAL HISTORY Z12.4 Z01.419 SCREENING PAP TEST ThinPrep Pap Test Only Date of Last Menstrual Period: UNKNOWN Menstrual Status: Regular SPECIMEN SUBMITTED CERVICAL/ENDOCERVI YUMIKO Specimen Received:1 Thin Prep Vial, Image Assisted Pap (SMD) Please note: The Pap smear is not a diagnostic test. It is a screening test. Negative results on combined screening (Pap test and HPV-DNA) have a high negative predictive value (99.1-100 percent) for cervical cancer. The pap test is not effective in detecting cervical adenocarcinoma. [facility] 11/08/2021 7:30 AM CDT 11/10/2021 7:30 AM CDT Comment:CERVICAL/ENDOCERVICA L Beth Roberts NP PATHOLOGY/CYTOLOGY ORDERABLES Fi nal Result [facility] [address] [place] [id number], from Last 3 Months or Most Recently Relevant to Health Maintenance Insurance Care Teams Property Technician Relationship Specialty Start Date End Date Faye Ovalle MD [address] [facility] [address] [place] [address] PCP - General INTERNAL MEDICINE 01/08/22
--- OUTSIDE RECORDS SUMMARY | 2024-07-15 09:51 | XMS_ITS | Encounter Summary ---
Author Organization [facility] Address [facility] [place] [address] Care Team Providers Care Parts Professional Name Role Phone Faye Ovalle MD Primary Care Provider [phone] Encounter Details Date Type Department Care Team (Latest Contact Info) Description 11/19/2022 MyChart Message Enc [facility] [address] [address] Faye Ovalle MD [address] [place] [phone] Blood work needs to be done Social History Tobacco Use Types Packs/Day Years Used Date Smoking Tobacco: Former Cigarettes 1 - 03/17/2021 Smokeless Tobacco: Never Comments:counseled by Dr Citlali crane Alcohol Use Standard Drinks/Week Comments Yes 0 (1 standard drink = 0.6 oz pur e alcohol) once a week PHQ-2 Answer Date Recorded PHQ-2 Score - If the patient scores above 3, please move on to questions 3-9 0 09/29/2021 Comments No Sex and Gender Information Value Date Recorded Sex Assigned at Not on file Legal Sex Female 8:52 PM CDT Gender Identity Not on file Sexual Orientation Not on file documented as of this encounter Plan of Treatment Upcoming Encounters Date Type Department Care Team (Late st Contact Info) Description 08/18/2024 9:40 AM CDT [facility] [address] [place] [address] Faye Ovalle MD [address] [facility] [address] [place] [address] documented as of this encounter Visit Diagnoses Not on filedocumented in this encounter Additional Health Concerns Assessment Noted Time PHQ-9 Depression Total Score: 3 09/30/19 22 8:47 AM CDT documented as of this encounter Care Teams Parts Professional Relationship Specialty Start Date End Date Faye Ovalle MD [address] [address] PCP - General INTERNAL MEDICINE 01/08/22 documented as of this encounter
--- OUTSIDE RECORDS SUMMARY | 2024-07-15 09:51 | XMS_ITS | Clinical Summary ---
Author Organization [facility] [employer] Address [address] [place] [address] Care Team Providers Care Plater Barrel Name Role Phone Unavailable Primary Care Provider Unavailabl e Source Comments [facility] [employer],non-owned Affiliates and Associated Physician Practices is amultiple site organization consisting of ambulatory clinics and hospital sitesin [place], [place], [place] and [place]. This disclosure is being madepursuant to the Care Everywhere program and may not contain all information available regarding this patient. Last updated 18.[facility] [employer] Allergies No known active allergies Immunizations Name Administration Dates Next Due INFLUENZA VACCINE, QUADR. (F LUZONE; FLULAVAL; FLUARIX; AFLURIA QUADRIVALENT; 6MO+), 0.5 ML (IIV4) 03/05/2020 TDAP (7yrs+) 03/05/2020 Social History Tobacco Use Types Packs/Day Years Used Date Smoking Tobacco: Never Assessed Sex and Gender Information Value Date Recorded Sex Assigned at Not on file Gender Identity Not on file Sexual Orientation Not on file Plan of Treatment Health Maintenance Due Date Last Done Comments PAP SMEAR 1986 HIV SCREENING 2001 HEPATITIS C SCREENING 11/25/2004 HEPATITIS B VACCINE (1 of 3 - 19+ 3-dose series) 2005 COVID-19 VACCINE (2023-2 5 season) 2024 05/06/2021, 08/08/2020 INFLUENZA VACCINE (#1) 2024 , 03/05/2020 DEPRESSION SCREENING 06/03/2024 DTAP/TDAP/TD VACCINES (2 - T d or Tdap) 03/05/2030 03/05/2020 ZOSTER VACCINE (1 of 2) 2036 HIB VACCINE Aged Out No longer eligi ble based on patient's age to complete this topic HPV VACCINE Aged Out No longer eligi ble based on patient's age to complete this topic MENINGOCOCCAL (Group B) VACCINE Aged Out No longer eligible b ased on patient's age to complete this topic MENINGOCOCCAL VACCINE Aged Out No geoffrey nickie eligible based on patient's age to complete this topic PNEUMOCOCCAL VACCINE Aged Out No long er eligible based on patient's age to complete this topic VIVIENNE DAHL Personal/Family Spouse [id number] [place] [id number]
--- OUTSIDE RECORDS SUMMARY | 2024-07-15 09:51 | XMS_ITS | Encounter Summary ---
Author Organization [facility] Address [facility] [place] [address] Care Team Providers Care Ged Tutor Name Role Phone Beth Roberts NP Primary Care Provider Faye Worthington MD Primary Care Provider [phone] Encounter Details Date Type Department Care Team (Latest Contact Info) Description 01/05/2021 MyChart Message [address] [address] [address] [place] [address] Beth Roberts, [place]ED[place] RE: Medication Questions Social History Tobacco Use Types Packs/Day Years Used Date Smoking Tobacco: Every Day Cigarettes Smokeless Tobacco: Never Alcohol Use Standard Drinks/Week Comments Yes 0 (1 standard drink = 0.6 oz pur e alcohol) once a week PHQ-2 Answer Date Recorded PHQ-2 Score - If the patient scores above 3, please move on to questions 3-9 0 12/29/2020 Comments No Sex and Gender Information Value Date Recorded Sex Assigned at Not on file Legal Sex Female 8:52 PM CDT Gender Identity Not on file Sexual Orientation Not on file COVID-19 Exposure Response Date Recorded In the last month, have you been in contact with someone who was confirmed or suspected to have Coronavirus / COVID-19? No / Unsure 12/29/2020 9:52 AM CDT documented as of this encounter Plan of Treatment Upcoming Encounters Date Type Department Care Team (Late st Contact Info) Description 08/18/2024 9:40 AM CDT Office Visit [address] [place] [address] Faye Ovalle MD [address] [address] documented as of this encounter Visit Diagnoses Not on filedocumented in this encounter Additional Health Concerns Infection Onset Date Last Indicated Resolved Time COVID-19 Rule Out 01/08/2022 01/08/2022 01/08/2022 10:41 AM CDT Assessment Noted Time PHQ-9 Depression Total Score: 0 12/30/19 10:24 AM CDT documented as of this encounter Care Teams Ged Tutor Relationship Specialty Start Date End Date Beth Roberts NP PCP - General NURSE PRACTITIONER 09/14/20 01/07/22 Faye Ovalle MD [address] [address] PCP - General INTERNAL MEDICINE 01/08/22 documented as of this encounter
--- OUTSIDE RECORDS SUMMARY | 2024-07-15 09:51 | XMS_ITS | Referral Summary ---
Author Organization [facility] [employer] Address [address] [place] [address] Care Team Providers Care Ham Pumper Name Role Phone Unavailable Primary Care Provider Unavailabl e Source Comments [facility] [employer],non-owned Affiliates and Associated Physician Practices is amultiple site organization consisting of ambulatory clinics and hospital sitesin [place], [place], [place] and [place]. This disclosure is being madepursuant to the Care Everywhere program and may not contain all information available regarding this patient. Last updated 18.[facility] [employer] Allergies No known active allergies Immunizations Name [...] Orientation Not on file Plan of Treatment Not on file
[2024-07-15] MEDS: SCOPOLAMINE 1 MG PATCH 1 PATCH TRANSDERM (10:04)
[2024-07-15] MEDS: TRANEXAMIC ACID 1,000 MG/10 ML AMPUL 1000 MG IV PUSH (10:08)
--- NOTE | 2024-07-15 10:58 | WPDHPUPDATE1 ---
History and Physical Update Update Date/Time: 07/15/24 10:58 History and Physical has been reviewed, including an updated exam of the patient. There are NO changes in the patient's condition. Risks, benefits, and alternatives have been discussed and questions answered. Patient agrees to proceed with procedure.
--- NOTE | 2024-07-15 11:02 | WPDANESEPPF ---
Anes - Initial Pre Proc Eval Procedure: Operation Date: 07/15/24 10:45 Proposed Procedures p Bilateral Breast Mastopexy with Galaflex - Keagan Davis MD Date/Time: 07/15/24 11:02 Surgeon: Keagan Davis MD Pre Op Diagnosis: Breast Ptosis Patient Data Age: 38 Gender: F Height: 1.7 m Weight: 74.75 kg Last Vital Signs Temp 36.8 C 07/15/24 09:50 Pulse 70 07/15/24 09:50 Resp 16 07/15/24 09:50 BP 91/64 L 07/15/24 09:50 Pulse Ox 100 07/15/24 09:50 O2 Del Method Room Air 07/15/24 09:50 Allergies Allergy/AdvReac Type Severity Reaction Status Date / Time No Known Allergies Allergy Unknown Verified 07/15/24 09:54 Home Medications ?Medication ?Instructions ?Recorded ?Confirmed ?Type fluoxetine 20 mg capsule (Prozac) 20 mg PO DAILY #90 caps 05/15/23 07/15/24 Rx Patient hx anesthesia problems: none Family hx anesthesia problems: none Results Review: All pre-operative results and documents have been reviewed as part of the pre-operative evaluation. REPLACED BY [facility] Past Medical History Medical History (Updated 07/15/24 @ 11:03 by Dereje Fernandez MD) Depression Suppression of menstruation Migraines Surgical History Surgical History (Updated 07/15/24 @ 11:03 by Dereje Fernandez MD) History of tubal ligation H/O LEEP (05/02/23) Laparoscopic bilateral salpingectomy 2. LEEP conization History of colposcopy (10/29/17) HGSIL danilo 2-3 Family History Family History Father Diabetes mellitus Grandparent Brain cancer maternal grandmother Cervical cancer maternal grandmother Mother Carcinoma of colon Social History Social History Smoking packs per day: 1 Smoking cigarettes per day: 20.0 Years smoked: 10 Smoking pack-years: 10.00 Smoking status: Former smoker Tobacco type: cigarettes Second hand tobacco smoke exposure: No Smoking end date: 07/31/19 Alcohol intake: current Drinks per week: 1 Substance use: never Substance use type: does not use Lack of Transportation: No Lack of Food: Never True Current Housing: I Have Housing Concerned About Future Housing: No Difficulty Paying Gas/Electric Bills: No Difficulty Paying for Meds: No Currently Unemployed: No Education: Associate Degree Difficulty w/ Childcare or Family Care: No Living arrangements: other Additional living arrangements comments: Occupation/Education: occupation 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 Gender identity (if verbalized by the patient): Female Sexual Orientation (if Verbalized by the Patient): Straight or Heterosexual Spiritual care concerns: No Anes - Eval Final PreProcedure Day of Procedure 07/15/24 11:02 Patient weight: normal Heart: regular rate and rhythm Lungs: clear to auscultation Airway: Mallampati scale class II Neurological: alert and oriented Last oral intake: >/= 8 hours ASA classification: II Emergent: no Anesthetic plan: proceed Anesthesia type and monitoring: general LMA and standard monitoring Results Review: All pre-operative results and documents have been reviewed as part of the pre-operative evaluation. Informed Consent: The patient's anesthetic plan and its attendant risks and benefits were discussed with the patient/family/POA. Questions were solicited and answers provided to the satisfaction of the patient/family/POA.
--- NOTE | 2024-07-15 11:05 | W.PM.PROC2 ---
Procedure Note - Detailed Date of Procedure 07/15/24 Pre-op Diagnosis Breast Ptosis Post-op Diagnosis Same Procedure Performed Bilateral mastopexy with Galaflex Surgeon Keagan Davis MD Anesthesia General Findings Inverted T Superior medial pedicle Galaflex REF# [id number] Description of Procedure She is here today for bilateral breast mastopexy. Previously and again today the risks, benefits, alternatives were discussed in extensive detail. I wanted her to be very realistic about the risks involved as well as expectations. We discussed aftercare and what to monitor for. Made sure answered all of her questions to her satisfaction today and consent was obtained. Marked in the preoperative holding area with their verification. The patient was taken to the operating room placed supine on the operating table. Anesthesia was provided by anesthesiology. A surgical time-out was taken. She was prepped and draped in a standard sterile fashion. Eleven blade was utilized to make a stab incision and infiltrated with low volume tumescent solution. The breast was tailor tacked into place. I tailor tacked the breast into position. Placed her in a sitting position. Verified the nipple-areolar location based on preoperative planning as well as intraoperative observations and measurements in full agreement. She was placed supine. I de-epithelialized the pedicle. I then de-epithelialized the inferior breast tissue to create an autoaugmentation flap based on intercostal acupressure therapist. I elevated medial and lateral tissue flaps as well for planned closure. The autoaugmentation flap was sutured to the chest wall with 2-0 PDS. Galaflex was soaking on the back table. Trimmed and sutured into place with 2-0 Vicryl. I closed along the IMF with 2-0 Stratafix. Along the vertical with 2-0 PDS. I closed around the Vivek with 3-0 strata fix. 3-0 Monocryl along the vertical. 3-0 Stratafix along the IMF. I finally closed everything with running subcuticular 4-0 Monocryl and tissue glue. Fluffs and surgical bra were placed. Estimated Blood Loss 30 Drains No Packing No Pathology None sent Complications No immediate complications Condition Stable Disposition PACU
[2024-07-15] MEDS: ceFAZolin 2 GM/D5W 50 ML 2 GM/50 ML BAG IVPB (11:13)
--- NOTE | 2024-07-15 13:03 | SUR.OPER ---
Rebecca Venegas taking over as scrub. Relief counts are good.
[2024-07-15] MEDS: fentaNYL CITRATE INJ (*CRX) 100 MCG/2 ML VIAL 25 MCG IV PUSH (14:27)
--- NOTE | 2024-07-15 14:36 | SUR.PHASEI ---
PT AWAKE AND RESTING QUIETLY. RN AT BEDSIDE. PT STATES PAIN 4-5/10 AND TOLERABLE. ASKING FOR PO FLUIDS.
[2024-07-15] MEDS: oxyCODONE HCL (*CRX) 5 MG TAB IR PO (15:01)
== END 2024-07-15 15:28 ==
PROVIDERS: PCP Internal Medicine; Visit Provider Surgery Plastic and Reconstructive Surgery
PROC: (CPT 19316; principal; 2024-07-15 10:45)
DX: Z41.1 Encounter for cosmetic surgery (principal); N64.81 Ptosis of breast
CPT/HCPCS: 19316; 15777